=== PATIENT | female | born 1980 | race Caucasian/White ===

== ENCOUNTER 2022-01-09 20:08 | Emergency (ER) | payer OTHER ==
[~2022-01-09] VITALS: Ht 165.1 cm; Wt 59.0 kg
[2022-01-09] MEDS ORDERED: CLIN150 PO (22:22)
== END 2022-01-09 22:37 | disposition home or self-care (01) ==
LOC: ER 20:08
DX: K04.7 Periapical abscess without sinus (principal); S02.5XXA Fracture of tooth (traumatic), initial encounter for closed fracture; F17.200 Nicotine dependence, unspecified, uncomplicated; Z88.0 Allergy status to penicillin; Z88.8 Allergy status to other drugs, medicaments and biological substances; X58.XXXA Exposure to other specified factors, initial encounter
CPT/HCPCS: 64400; 99282-25; A9270

== ENCOUNTER 2023-08-10 12:36 | Emergency (ER) | payer OTHER ==
[~2023-08-10] VITALS: Ht 165.1 cm; Wt 59.0 kg
[~2023-08-10 12:36] MED LIST: CLIN150 PO
[2023-08-10 12:44] VITALS: BP 156/84
[2023-08-10] MEDS ORDERED: Diphth,Pertuss(Acell),Tet Vac 0.5 ML VIAL IM ONE (12:45)
[2023-08-10] MEDS ORDERED: OxyCODONE 5 mg/Acetamin 325 mg TABLET PO ONE ×2 (12:50→17:15)
[2023-08-10] MEDS ORDERED: Lidocaine/Tetracaine/Epinephr 4 ML SOLN TOP ONE (12:50)
[2023-08-10] MEDS ORDERED: Ketorolac Tromethamine 15mg Vial IV ONE (13:45)
[2023-08-10] MEDS ORDERED: Ondansetron HCl 2 MG / ML 2ML Vial IV ONE ×2 (13:45→17:15)
[2023-08-10] MEDS ORDERED: FentaNYL Citrate 50 MCG/ML 2 ML Injection IV ONE (13:45)
[2023-08-10] MEDS ORDERED: HYDROmorphone HCl/Pf 1MG SYR IV ONE (14:35)
[2023-08-10] MEDS ORDERED: MS Contin15 MG PO (17:07)
[2023-08-10] MEDS ORDERED: BACTRIM DS TAB1 EAC1 PO (17:07)
[2023-08-10] MEDS ORDERED: NARCAN4 M1 (17:07)
[2023-08-10] MEDS ORDERED: ONDA4ODT MM (17:09)
[2023-08-10] MEDS ORDERED: Trimethoprim/Sulfamethoxazole DS Tab PO ONE (17:10)
== END 2023-08-10 17:42 | disposition home or self-care (01) ==
LOC: ER 12:36
DX: S51.811A Laceration without foreign body of right forearm, initial encounter (principal); S61.511A Laceration without foreign body of right wrist, initial encounter; S61.011A Laceration without foreign body of right thumb without damage to nail, initial encounter; W10.9XXA Fall (on) (from) unspecified stairs and steps, initial encounter; F17.200 Nicotine dependence, unspecified, uncomplicated; Z88.0 Allergy status to penicillin; Z88.8 Allergy status to other drugs, medicaments and biological substances; Z79.2 Long term (current) use of antibiotics
CPT/HCPCS: 73090; 90715; A9270; J1170; J1885; J2405; J3010

== ENCOUNTER 2023-09-10 01:16 | Inpatient (IN) | payer OTHER ==
[2023-09-10] VITALS (21 sets, daily range): BP systolic 105–141; BP diastolic 60–96
[~2023-09-10] VITALS: Ht 162.6 cm; Wt 65.5 kg
[~2023-09-10 01:16] MED LIST changes: +BACTRIM DS TAB1 EAC1 PO; +MS Contin15 MG PO; +NARCAN4 M1; +ONDA4ODT MM
[2023-09-10] MEDS ORDERED: BUPR75 PO (03:00)
[2023-09-10 03:01] LABS: BASOPHILS ABSOLUTE AUTO 0.06 K/mm3 (0.00-0.23); BASOPHILS PERCENT AUTO 1 % (0-2); EOSINOPHILS ABSOLUTE AUTO 0.15 K/mm3 (0.00-0.68); EOSINOPHILS PERCENT AUTO 1 % (0-6); Hematocrit 37.2 % (33.0-51.0); Hemoglobin 12.3 g/dL (11.5-16.0); IMMATURE GRAN ABSOLUTE AUTO 0.02 K/mm3 (0.00-0.10); IMMATURE GRAN PERCENT AUTO 0 % (0-1); LYMPHOCYTES ABSOLUTE AUTO 2.02 K/mm3 (0.84-5.20); LYMPHOCYTES PERCENT AUTO 18 % (21-46); MONOCYTES PERCENT AUTO 8 % (4-13); Mean Corpuscular HGB 29.9 pg (26.0-34.0); Mean Corpuscular HGB Conc 33.1 g/dL (31.5-36.5); Mean Corpuscular Volume 91 fL (80-100); Mean Platelet Volume 8.6 fL (9.1-12.4); NEUTROPHILS ABSOLUTE AUTO 8.18 K/mm3 (1.96-9.15); NEUTROPHILS PERCENT AUTO 72 % (41-73); Platelet Count 424 K/mm3 (150-400); RDW Coefficient Variation 14.7 % (11.7-14.2); RDW Standard Deviation 49.2 fL (35.1-46.3); Red Blood Cell Count 4.11 M/mm3 (3.80-5.20); White Blood Cell Count 11.33 K/mm3 (4.00-11.30)
[2023-09-10] MEDS ORDERED: Ventolin5 MG/1 ML INH (03:01)
[2023-09-10 03:07] LABS: Source, Urine Clean Catch
[2023-09-10 03:09] LABS: Bilirubin, Urine Neg (Neg); Blood, Urine Neg (Neg); Glucose Qualitative, Urine Neg (Neg); Ketones, Urine Neg (Neg); Leukocyte Esterase, Urine Neg (Neg); Nitrite, Urine Neg (Neg); Protein, Urine Neg (Neg); Urobilinogen, Urine NORM (Normal)
[2023-09-10 03:11] LABS: Appearance, Urine Clear (Clear); Color, Urine Yellow (P-Yellow)
[2023-09-10 03:16] LABS: Albumin, Blood 3.8 g/dL (3.4-5.0); Albumin/Globulin Ratio 1.2 (0.8-1.8); Bilirubin, Total 0.2 mg/dL (0.1-1.0); Bun/Creatinine Ratio 18.6 (12.0-20.0); Calcium, Blood 9.1 mg/dL (8.5-10.1); Creatinine, Blood 0.65 mg/dL (0.40-1.00); Globulin, Blood 3.2 g/dL (2.2-4.0); Potassium, Blood 4.1 mmol/L (3.5-5.5)
[2023-09-10] MEDS ORDERED: Ketorolac Tromethamine 30mg Vial IV ONE (03:30)
[2023-09-10] MEDS ORDERED: NS 1,000 ML IV SCH (03:30)
[2023-09-10] MEDS ORDERED: Ondansetron HCl 2 MG / ML 2ML Vial IV ONE (04:15)
[2023-09-10] MEDS ORDERED: FentaNYL Citrate 50 MCG/ML 2 ML Injection IV ONE (04:15)
[2023-09-10] MEDS ORDERED: HYDROmorphone HCl/Pf 1MG SYR IV ONE (06:00)
[2023-09-10] MEDS ORDERED: OxyCODONE HCL 5 MG TAB PO ONE (06:55)
[2023-09-10] MEDS ORDERED: Ondansetron HCl 2 MG / ML 2ML Vial IV PRN ×2 (08:40→18:45)
[2023-09-10] MEDS ORDERED: Naloxone HCl 0.4MG / ML 1ML Vial IV PRN ×2 (08:40→18:40)
[2023-09-10] MEDS ORDERED: Metoclopramide HCl 5MG / ML 2ML Vial IV PRN ×2 (08:40→18:40)
[2023-09-10] MEDS ORDERED: Morphine Sulfate 4 MG/1 ML Injection IV PRN (08:40)
[2023-09-10] MEDS ORDERED: Lactated Ringer's 1,000 ML IV SCH ×3 (08:45→18:35)
[2023-09-10] MEDS ORDERED: ATOMOXETINE HCL40 M3 PO (09:29)
[2023-09-10] MEDS ORDERED: BUSPIRONE HCL10 M6 PO (09:31)
[2023-09-10] MEDS ORDERED: BREYNA 160-4.10.3 GM INH (09:32)
--- NOTE | 2023-09-10 10:15 | NUR ---
ARRIVAL PT ARRIVED TO UNIT FROM ER VIA WHEELCHAIR. PT ABLE TO STAND AND TRANSFER TO BED. AMBULATES TO RESTROOM HUNCHED OVER R/T PAIN. MEDICATION PER EMAR. EDUCATED PT ON NPO STATUS AND PLAN FOR SURGERY TODAY. PT UNDERSTANDS BUT IS ANXIOUS ABOUT SURGERY. PT DENIES OTHER DISCOMFORT OR PAIN BESIDES ABDOMEN. LARGE SCAR TO R FOREARM FROM LACERATION 1 MONTH AGO, HEALING BUT WITH SMALL SCABBED OVER AREA. MEDICATION FOR PAIN PER EMAR AND LR INFUSING PER EMAR. CALL LIGHT PROVIDED.
[2023-09-10] MEDS ORDERED: Acetaminophen 500 MG Tab PO SCH (12:00)
[2023-09-10] MEDS ORDERED: Ketorolac Tromethamine 30mg Vial IV SCH (12:00)
--- NOTE | 2023-09-10 12:42 | NUR ---
PT TO OR AT APROX 1240.
[2023-09-10] MEDS ORDERED: CeFAZolin Sodium 2,000 MG in NS 100 ML IV SCH (13:00)
--- NOTE | 2023-09-10 13:00 | NUR ---
History, Chart, Medications and Allergies reviewed before start of procedure. Patient up to Ambulate independently. Gait steady. Pre-Op teaching done. Pt verbalizes understanding. Patient confirms NPO status and agrees with scheduled surgery. Surgical site prepped with 2% Chlorhexidine cloth wipe. Lungs clear T/O to Auscultation. Spouse at bedside, both tearful but calm.
[2023-09-10] MEDS ORDERED: Morphine Sulfate 4 MG/1 ML Injection ONE (13:12)
[2023-09-10] MEDS ORDERED: Bupivacaine 0.5% HCl 5 MG/ML 30MLVIAL ONE ×2 (13:23→17:48)
[2023-09-10] MEDS ORDERED: propofoL 20 ML IV ONE (13:25)
[2023-09-10] MEDS ORDERED: FentaNYL Citrate 50 MCG/ML 2 ML Injection ONE ×2 (13:26→16:31)
[2023-09-10] MEDS ORDERED: Lidocaine HCl 2% 20 ML MDV ONE (13:27)
[2023-09-10] MEDS ORDERED: SuccINYLCHOLINE Chloride 100 MG/5 ML 5MLSYR ONE (13:27)
[2023-09-10] MEDS ORDERED: Rocuronium Bromide 10 MG/ML 5ML Injection IV ONE ×2 (13:27→14:48)
[2023-09-10] MEDS ORDERED: Midazolam HCl 1MG / ML 2ML Vial IV ONE (13:40)
[2023-09-10] MEDS ORDERED: Phenylephrine HCl 100 MCG/ML-NS 10MLSYR (1MG/10ML) ONE (13:52)
[2023-09-10] MEDS ORDERED: Ondansetron HCl 2 MG / ML 2ML Vial ONE ×2 (14:11→18:42)
[2023-09-10] MEDS ORDERED: Dexamethasone Sod Phos 10 MG/ML 1ML VIAL ONE (14:11)
[2023-09-10] MEDS ORDERED: Tranexamic Acid 100 ML IV ONE (15:30)
[2023-09-10] MEDS ORDERED: Tranexamic Acid 100 ML IV SCH (16:55)
[2023-09-10] MEDS ORDERED: Sugammadex Sodium 200 MG/2ML SDV (100 MG/ML) ONE (17:05)
--- NOTE | 2023-09-10 18:01 | NUR ---
SHIFT SUMMARY PT REMAINS IN OR SINCE 1240. PRIOR TO LEAVING FOR OR PAIN WAS CONTROLLED PER EMAR AND PATIENT ABLE TO AMBULATE WELL TO RESTROOM. VERY ANXIOUS FOR PROCEDURE.
[2023-09-10] MEDS ORDERED: HYDROmorphone HCl/Pf 1MG SYR ONE ×2 (18:15→18:40)
[2023-09-10] MEDS ORDERED: Metoclopramide HCl 5MG / ML 2ML Vial ONE (18:16)
[2023-09-10] MEDS ORDERED: HYDROmorphone HCl/Pf 1MG SYR IV PRN (18:40)
[2023-09-10] MEDS ORDERED: Simethicone 80 MG Chew PO PRN (18:45)
[2023-09-10] MEDS ORDERED: OxyCODONE HCL 5 MG TAB PO PRN ×2 (18:45)
[2023-09-10] MEDS ORDERED: DiphenhydrAMINE HCL 25 MG Cap PO PRN (18:45)
[2023-09-11] MEDS ORDERED: Ibuprofen 400 MG Tab PO SCH
[2023-09-11] MEDS ORDERED: Acetaminophen 500 MG Tab PO SCH
[2023-09-11] MEDS ORDERED: Ketorolac Tromethamine 30mg Vial IV SCH
[2023-09-11 04:01] VITALS: BP 112/61
[2023-09-11 05:22] LABS: BASOPHILS ABSOLUTE AUTO 0.02 K/mm3 (0.00-0.23); BASOPHILS PERCENT AUTO 0 % (0-2); EOSINOPHILS ABSOLUTE AUTO 0.04 K/mm3 (0.00-0.68); EOSINOPHILS PERCENT AUTO 1 % (0-6); Hematocrit 31.5 % (33.0-51.0); Hemoglobin 10.5 g/dL (11.5-16.0); IMMATURE GRAN ABSOLUTE AUTO 0.03 K/mm3 (0.00-0.10); IMMATURE GRAN PERCENT AUTO 0 % (0-1); LYMPHOCYTES ABSOLUTE AUTO 1.18 K/mm3 (0.84-5.20); LYMPHOCYTES PERCENT AUTO 14 % (21-46); MONOCYTES PERCENT AUTO 7 % (4-13); Mean Corpuscular HGB Conc 33.3 g/dL (31.5-36.5); Mean Corpuscular Volume 93 fL (80-100); Mean Platelet Volume 9.2 fL (9.1-12.4); NEUTROPHILS ABSOLUTE AUTO 6.45 K/mm3 (1.96-9.15); NEUTROPHILS PERCENT AUTO 78 % (41-73); Platelet Count 354 K/mm3 (150-400); RDW Coefficient Variation 14.8 % (11.7-14.2); RDW Standard Deviation 50.5 fL (35.1-46.3); Red Blood Cell Count 3.39 M/mm3 (3.80-5.20); White Blood Cell Count 8.32 K/mm3 (4.00-11.30)
--- NOTE | 2023-09-11 05:50 | NUR ---
SHIFT SUMMARY S/P ROBOTIC HYSTER CONVERTED TO OPEN. PT SLEPT INTERMITTENTLY T/O NOC. LAP SITES + LOWER TRANSVERSE INCISION REMAIN UNCHANGED WITH ABD BINDER IN PLACE. 2 SHARON + TYLENOL + TORADOL FOR PAIN MANAGEMENT AND KPAD TO ABD FOR COMFORT. IVF INFUSING PER ORDERS. BEAULIEU CATH DC'D THIS AM PER ORDERS. AWAITING FIRST SPONTANEOUS VOID. POST OP VS STABLE. USES CALL LIGHT APPROPRIATELY. SIG OTHER AT BEDSIDE FOR SUPPORT.
[2023-09-11 07:13] VITALS: BP 118/62
[2023-09-11] MEDS ORDERED: Polyethylene Glycol 3350 17 gm PO SCH (09:00)
[2023-09-11] MEDS ORDERED: Enoxaparin 40 MG/0.4 ML SYR SC SCH (09:00)
[2023-09-11 14:27] VITALS: BP 121/70
--- NOTE | 2023-09-11 17:20 | NUR ---
SHIFT SUMMARY POD 1 LAP TO OPEN HYSTERECTOMY. TRANSVERSE DRESSING CHANGED THIS AFTERNOON BY DR. WEBB. REMAINS WITH SMALL AMOUNT OF SEROSANGUINOUS DRAINAGE ON BANDAGE. PT CONTINUES TO REPORT PAIN WELL CONTROLLED PER EMAR. TOLERATING DIET WELL, NO NAUSEA. AMBULATING FREQUENTLY IN THE HALLS. PLAN IS FOR PATIENT TO DISCHARGE TOMORROW IF SHE CONTINUES TO DO WELL.
[2023-09-11 19:55] VITALS: BP 130/75
[2023-09-12] MEDS ORDERED: Promethazine HCl 25 MG Tab PO PRN (03:00)
[2023-09-12] MEDS ORDERED: Promethazine HCl 25 MG Supp PR PRN (03:15)
[2023-09-12] MEDS ORDERED: Ondansetron 4 MG SoluTab SL PRN (05:35)
--- NOTE | 2023-09-12 06:10 | NUR ---
SHIFT SUMMARY PT WAS DOING WELL AT START OF SHIFT AND THEN BECAME NAUSEATED AND HAD A FEW EPISODES OF EMESIS T/O NOC. ANTIEMETICS GIVEN PER ORDERS. PT STILL FEELING NAUSEATED. INCISIONS REMAIN UNCHANGED WITH ABD BINDER IN PLACE. PT VOIDING SPONTANEOUSLY AND INDEP IN ROOM AND WITH AMBULATION. VSS. USES CALL LIGHT APPROPRIATELY.
[2023-09-12] MEDS ORDERED: Prochlorperazine Edisylate 10 mg Vial IV PRN (08:00)
[2023-09-12] MEDS ORDERED: D5W-LR 1,000 ML IV SCH (08:00)
[2023-09-12 08:02] VITALS: BP 146/84
[2023-09-12] MEDS ORDERED: Lactated Ringer's 1,000 ML IV SCH (08:05)
[2023-09-12] MEDS ORDERED: Lactated Ringer's 500 ML IV ONE (08:05)
[2023-09-12] MEDS ORDERED: Ketorolac Tromethamine 30mg Vial IV PRN (08:05)
[2023-09-12 14:28] VITALS: BP 117/77
--- NOTE | 2023-09-12 15:34 | NUR ---
DISCHARGE FEELS MUCH BETTER. TOLERATING SNACKS & FLUIDS & WISHES TO GO HOME. PAIN WELL MANAGED & AMBULATING EASILY. DECLINES WC & AMBULATES OUT w/ .
--- NOTE | 2023-09-13 15:02 | NUR ---
09/13/23 1502 Radha Wise VERIFICATIONS: EDIT CHART.
== END 2023-09-12 15:36 | disposition home or self-care (01) | DRG 742 ==
LOC: ER 01:16 → SURS 08:37
PROVIDERS: Student in an Organized Health Care Education/Training Program; ADMIT Obstetrics & Gynecology
PROC: 0WJG4ZZ Inspection of Peritoneal Cavity, Percutaneous Endoscopic Approach (ICD-10-PCS; 2023-09-10)
PROC: 0U510ZZ Destruction of Left Ovary, Open Approach (ICD-10-PCS; 2023-09-10)
PROC: 8E0W4CZ Robotic Assisted Procedure of Trunk Region, Percutaneous Endoscopic Approach (ICD-10-PCS; 2023-09-10)
PROC: 0UT90ZZ Resection of Uterus, Open Approach (ICD-10-PCS; principal; 2023-09-10 13:30)
PROC: 0UB70ZZ Excision of Bilateral Fallopian Tubes, Open Approach (ICD-10-PCS; 2023-09-10 13:30)
DX: D25.9 Leiomyoma of uterus, unspecified (principal); K56.7 Ileus, unspecified; K91.89 Other postprocedural complications and disorders of digestive system; N80.00 Endometriosis of the uterus, unspecified; N88.2 Stricture and stenosis of cervix uteri; N80.102 Endometriosis of left ovary, unspecified depth; J45.909 Unspecified asthma, uncomplicated; F41.9 Anxiety disorder, unspecified; K21.9 Gastro-esophageal reflux disease without esophagitis; F17.200 Nicotine dependence, unspecified, uncomplicated; F32.A Depression, unspecified; Z53.31 Laparoscopic surgical procedure converted to open procedure; Z88.0 Allergy status to penicillin; Z88.8 Allergy status to other drugs, medicaments and biological substances
CPT/HCPCS: 36415; 74177; 76856; 80053; 81003; 83690; 84702; 84703; 85025; 86850; 86900; 86901; 88307; 94762; 96361; 96374-59; 96375; 96376; 99284-25; 99285-25; A9270; G0378; J0330; J0690; J0780; J1100; J1170; J1650; J1885; J2250; J2270; J2371; J2405; J2704; J2765; J3010; J7030; J7120; Q9967

== ENCOUNTER 2023-09-14 13:35 | Emergency (ER) | payer OTHER ==
[~2023-09-14] VITALS: Ht 165.1 cm; Wt 56.7 kg
[~2023-09-14 13:35] MED LIST changes: +ATOMOXETINE HCL40 M3 PO; +BREYNA 160-4.10.3 GM INH; +BUPR75 PO; +BUSPIRONE HCL10 M6 PO; +Ventolin5 MG/1 ML INH
[2023-09-14 14:05] VITALS: BP 135/74
[2023-09-14 14:33] LABS: BASOPHILS ABSOLUTE AUTO 0.02 K/mm3 (0.00-0.23); BASOPHILS PERCENT AUTO 0 % (0-2); EOSINOPHILS ABSOLUTE AUTO 0.45 K/mm3 (0.00-0.68); EOSINOPHILS PERCENT AUTO 7 % (0-6); Hematocrit 34.5 % (33.0-51.0); Hemoglobin 11.3 g/dL (11.5-16.0); IMMATURE GRAN ABSOLUTE AUTO 0.03 K/mm3 (0.00-0.10); IMMATURE GRAN PERCENT AUTO 1 % (0-1); LYMPHOCYTES ABSOLUTE AUTO 1.18 K/mm3 (0.84-5.20); LYMPHOCYTES PERCENT AUTO 19 % (21-46); MONOCYTES ABSOLUTE AUTO 0.43 K/mm3 (0.16-1.47); MONOCYTES PERCENT AUTO 7 % (4-13); Mean Corpuscular HGB 30.6 pg (26.0-34.0); Mean Corpuscular HGB Conc 32.8 g/dL (31.5-36.5); Mean Corpuscular Volume 94 fL (80-100); Mean Platelet Volume 8.4 fL (9.1-12.4); NEUTROPHILS ABSOLUTE AUTO 4.17 K/mm3 (1.96-9.15); NEUTROPHILS PERCENT AUTO 66 % (41-73); Platelet Count 384 K/mm3 (150-400); RDW Coefficient Variation 14.6 % (11.7-14.2); RDW Standard Deviation 49.9 fL (35.1-46.3); Red Blood Cell Count 3.69 M/mm3 (3.80-5.20); White Blood Cell Count 6.28 K/mm3 (4.00-11.30)
[2023-09-14 15:02] LABS: Albumin, Blood 3.2 g/dL (3.4-5.0); Bilirubin, Total 0.4 mg/dL (0.1-1.0); Bun/Creatinine Ratio 11.8 (12.0-20.0); Calcium, Blood 8.7 mg/dL (8.5-10.1); Creatinine, Blood 0.68 mg/dL (0.40-1.00); Globulin, Blood 3.3 g/dL (2.2-4.0); Potassium, Blood 3.6 mmol/L (3.5-5.5); Total Protein, Blood 6.5 g/dL (6.4-8.2)
[2023-09-14] MEDS ORDERED: Ketorolac Tromethamine 30mg Vial IV ONE (15:50)
[2023-09-14] MEDS ORDERED: Metoclopramide HCl 5MG / ML 2ML Vial IV ONE (15:50)
[2023-09-14] MEDS ORDERED: ACETAMINOPHEN500 M2 PO (16:04)
[2023-09-14] MEDS ORDERED: IBU800 M1 PO (16:04)
[2023-09-14] MEDS ORDERED: ONDANSETRON ODT 4 MG (16:04)
[2023-09-14] MEDS ORDERED: OXYC5 PO (16:06)
[2023-09-14] MEDS ORDERED: Reglan10 MG PO (16:48)
== END 2023-09-14 17:05 | disposition home or self-care (01) ==
LOC: ER 13:35
PROVIDERS: Nurse Practitioner
DX: K91.89 Other postprocedural complications and disorders of digestive system (principal); K56.7 Ileus, unspecified; Z88.0 Allergy status to penicillin; Z88.8 Allergy status to other drugs, medicaments and biological substances; F17.200 Nicotine dependence, unspecified, uncomplicated
CPT/HCPCS: 74177; 80053; 83690; 85025; 96374-59; 96375; 99284-25; J1885; J2765; Q9967

== ENCOUNTER 2023-09-17 15:52 | Inpatient (IN) | payer OTHER ==
[~2023-09-17] VITALS: Ht 165.1 cm; Wt 59.0 kg
[~2023-09-17 15:52] MED LIST changes: +ACETAMINOPHEN500 M2 PO; +IBU800 M1 PO; +ONDANSETRON ODT 4 MG; +OXYC5 PO; +Reglan10 MG PO
[2023-09-17 16:31] LABS: BASOPHILS ABSOLUTE AUTO 0.03 K/mm3 (0.00-0.23); BASOPHILS PERCENT AUTO 0 % (0-2); EOSINOPHILS ABSOLUTE AUTO 0.32 K/mm3 (0.00-0.68); EOSINOPHILS PERCENT AUTO 4 % (0-6); Hematocrit 39.5 % (33.0-51.0); Hemoglobin 13.1 g/dL (11.5-16.0); IMMATURE GRAN ABSOLUTE AUTO 0.02 K/mm3 (0.00-0.10); IMMATURE GRAN PERCENT AUTO 0 % (0-1); LYMPHOCYTES ABSOLUTE AUTO 1.41 K/mm3 (0.84-5.20); LYMPHOCYTES PERCENT AUTO 15 % (21-46); MONOCYTES ABSOLUTE AUTO 0.63 K/mm3 (0.16-1.47); MONOCYTES PERCENT AUTO 7 % (4-13); Mean Corpuscular HGB 30.3 pg (26.0-34.0); Mean Corpuscular HGB Conc 33.2 g/dL (31.5-36.5); Mean Corpuscular Volume 91 fL (80-100); Mean Platelet Volume 8.2 fL (9.1-12.4); NEUTROPHILS ABSOLUTE AUTO 6.79 K/mm3 (1.96-9.15); NEUTROPHILS PERCENT AUTO 74 % (41-73); Platelet Count 476 K/mm3 (150-400); RDW Coefficient Variation 14.4 % (11.7-14.2); RDW Standard Deviation 49.1 fL (35.1-46.3); Red Blood Cell Count 4.32 M/mm3 (3.80-5.20)
[2023-09-17 17:03] LABS: Albumin, Blood 3.6 g/dL (3.4-5.0); Bilirubin, Total 0.2 mg/dL (0.1-1.0); Bun/Creatinine Ratio 8.1 (12.0-20.0); Calcium, Blood 9.1 mg/dL (8.5-10.1); Creatinine, Blood 0.62 mg/dL (0.40-1.00); Globulin, Blood 3.7 g/dL (2.2-4.0); Potassium, Blood 3.7 mmol/L (3.5-5.5); Total Protein, Blood 7.3 g/dL (6.4-8.2)
[2023-09-17] MEDS ORDERED: NS 1,000 ML IV SCH (18:20)
[2023-09-17] MEDS ORDERED: Ketorolac Tromethamine 30mg Vial IV ONE (18:20)
[2023-09-17] MEDS ORDERED: Metoclopramide HCl 5MG / ML 2ML Vial IV ONE (18:45)
[2023-09-17] MEDS ORDERED: Docusate Sodium 100 MG Cap PO SCH (21:00)
[2023-09-17] MEDS ORDERED: Prochlorperazine Edisylate 10 mg Vial IV PRN (21:00)
[2023-09-17] MEDS ORDERED: Metoclopramide HCl 5MG / ML 2ML Vial IV PRN (21:05)
[2023-09-17] MEDS ORDERED: OxyCODONE HCL 5 MG TAB PO PRN ×2 (21:05)
[2023-09-17] MEDS ORDERED: Naloxone HCl 0.4MG / ML 1ML Vial IV PRN (21:05)
[2023-09-17] MEDS ORDERED: Lactated Ringer's 1,000 ML IV SCH (21:10)
[2023-09-17 22:34] VITALS: BP 139/89
[2023-09-18] MEDS ORDERED: Ketorolac Tromethamine 30mg Vial IV SCH
[2023-09-18] MEDS ORDERED: Acetaminophen 500 MG Tab PO SCH
[2023-09-18 02:40] VITALS: BP 139/89
[2023-09-18 04:06] LABS: BASOPHILS ABSOLUTE AUTO 0.02 K/mm3 (0.00-0.23); BASOPHILS PERCENT AUTO 0 % (0-2); EOSINOPHILS ABSOLUTE AUTO 0.36 K/mm3 (0.00-0.68); EOSINOPHILS PERCENT AUTO 4 % (0-6); Hemoglobin 11.3 g/dL (11.5-16.0); IMMATURE GRAN ABSOLUTE AUTO 0.03 K/mm3 (0.00-0.10); IMMATURE GRAN PERCENT AUTO 0 % (0-1); LYMPHOCYTES ABSOLUTE AUTO 1.56 K/mm3 (0.84-5.20); LYMPHOCYTES PERCENT AUTO 17 % (21-46); MONOCYTES ABSOLUTE AUTO 0.97 K/mm3 (0.16-1.47); MONOCYTES PERCENT AUTO 11 % (4-13); Mean Corpuscular HGB 30.2 pg (26.0-34.0); Mean Corpuscular HGB Conc 33.2 g/dL (31.5-36.5); Mean Corpuscular Volume 91 fL (80-100); Mean Platelet Volume 8.4 fL (9.1-12.4); NEUTROPHILS ABSOLUTE AUTO 6.24 K/mm3 (1.96-9.15); NEUTROPHILS PERCENT AUTO 68 % (41-73); Platelet Count 407 K/mm3 (150-400); RDW Coefficient Variation 14.6 % (11.7-14.2); RDW Standard Deviation 48.8 fL (35.1-46.3); Red Blood Cell Count 3.74 M/mm3 (3.80-5.20); White Blood Cell Count 9.18 K/mm3 (4.00-11.30)
[2023-09-18 04:21] LABS: Albumin, Blood 2.9 g/dL (3.4-5.0); Bilirubin, Total 0.4 mg/dL (0.1-1.0); Bun/Creatinine Ratio 13.7 (12.0-20.0); Calcium, Blood 8.6 mg/dL (8.5-10.1); Creatinine, Blood 0.58 mg/dL (0.40-1.00); Globulin, Blood 2.9 g/dL (2.2-4.0); Magnesium, Blood 2.1 mg/dL (1.6-2.4); Phosphorus, Blood 3.3 mg/dL (2.5-4.9); Potassium, Blood 3.5 mmol/L (3.5-5.5); Total Protein, Blood 5.8 g/dL (6.4-8.2)
[2023-09-18 07:19] VITALS: BP 145/88
--- NOTE | 2023-09-18 07:36 | NUR ---
SHIFT SUMMARY PT ADMITTED FOR ILEUS POST HYSTER PT IS A&O X4, INDEPENDENT IN ROOM, NPO W CIPS, VOIDING WNL, PASSING SMALL AMOUNTS OF FLATUS, MILD NAUSEA, NO EMESIS SINCE COMING TO THE FLOOR, PAIN MANAGED PER EMAR PRN, LR INFUSING @125 ML/HR, RESTING IN BED AT THIS TIME, BEDSIDE REPORT GIVEN TO VINICIO SCHMIDT, CALL LIGHT IN REACH
[2023-09-18] MEDS ORDERED: Enoxaparin 40 MG/0.4 ML SYR SC SCH (09:00)
[2023-09-18] MEDS ORDERED: buPROPion HCL 150 MG TAB.SR.12H PO SCH (09:00)
[2023-09-18] MEDS ORDERED: NS 500 ML IV ONE ×2 (13:40→18:20)
[2023-09-18 13:57] VITALS: BP 135/83
[2023-09-18] MEDS ORDERED: Calcium Carbonate 500 MG Tab Chew PO PRN (17:20)
--- NOTE | 2023-09-18 17:54 | NUR ---
SUMMARY NO ACUTE CHANGES T/O SHIFT. PT REPORTED SMALL LIQUID BM THIS AFTERNOON. PT HAVING LOW UO. NOTIFIED DR WEBB, BOLUS ORDERED AND GIVEN. PT REPORTED REFLUX, ORDERED OBTAINED FOR TUMS AND ADMINISTERED. INDEPENDENT IN JAY. TOLERATING SMALL AMOUNTS OF CLEAR LIQUIDS.
[2023-09-18 18:46] LABS: BASOPHILS ABSOLUTE AUTO 0.05 K/mm3 (0.00-0.23); BASOPHILS PERCENT AUTO 0 % (0-2); EOSINOPHILS ABSOLUTE AUTO 0.36 K/mm3 (0.00-0.68); EOSINOPHILS PERCENT AUTO 3 % (0-6); Hematocrit 33.5 % (33.0-51.0); Hemoglobin 11.3 g/dL (11.5-16.0); IMMATURE GRAN ABSOLUTE AUTO 0.04 K/mm3 (0.00-0.10); IMMATURE GRAN PERCENT AUTO 0 % (0-1); LYMPHOCYTES ABSOLUTE AUTO 1.55 K/mm3 (0.84-5.20); LYMPHOCYTES PERCENT AUTO 13 % (21-46); MONOCYTES ABSOLUTE AUTO 0.92 K/mm3 (0.16-1.47); MONOCYTES PERCENT AUTO 8 % (4-13); Mean Corpuscular HGB 30.8 pg (26.0-34.0); Mean Corpuscular HGB Conc 33.7 g/dL (31.5-36.5); Mean Corpuscular Volume 91 fL (80-100); Mean Platelet Volume 8.2 fL (9.1-12.4); NEUTROPHILS ABSOLUTE AUTO 8.97 K/mm3 (1.96-9.15); NEUTROPHILS PERCENT AUTO 76 % (41-73); Platelet Count 400 K/mm3 (150-400); RDW Coefficient Variation 14.6 % (11.7-14.2); Red Blood Cell Count 3.67 M/mm3 (3.80-5.20); White Blood Cell Count 11.89 K/mm3 (4.00-11.30)
[2023-09-18 19:17] VITALS: BP 140/88
[2023-09-18 19:19] LABS: Bun/Creatinine Ratio 13.8 (12.0-20.0); Calcium, Blood 8.2 mg/dL (8.5-10.1); Creatinine, Blood 0.65 mg/dL (0.40-1.00); Potassium, Blood 3.8 mmol/L (3.5-5.5)
[2023-09-18] MEDS ORDERED: Magnesium Hydroxide Conc 10 ML UDC PO SCH (21:00)
[2023-09-18] MEDS ORDERED: Promethazine HCl 25 MG Tab PO PRN (21:30)
[2023-09-18] MEDS ORDERED: Promethazine HCl 25 MG Supp PR PRN (21:30)
--- NOTE | 2023-09-18 22:36 | NUR ---
2130- PT HAD EPISODE OF SIGNIFICANT VOMITING. PT VOMITED 1500 ML BRIGHT GREEN BILE/ FLUID. PT DID REPORT FEELING BETTER. PROVIDER NOTIFIED AND NEW ORDERERS RECIEVED.
[2023-09-19 03:25] VITALS: BP 133/86
--- NOTE | 2023-09-19 05:16 | NUR ---
SUMMARY- PT HAD TWO EPISODES OF VOMITING >1000 ML OF EMESIS. PT DID HAVE SOME RELIEF FROM NAUSEA MEDS. PT OFFERED NGT BUT STATED SHE WANTED TO DISCUSS WITH PROVIDER THIS AM BEFORE MAKING A DECISION. PT IS NPO WITH SIPS AND CHIPS ONLY. PT RESTING CURRENTLY. CALL LIGHT IN REACH.
[2023-09-19 05:25] LABS: BASOPHILS ABSOLUTE AUTO 0.05 K/mm3 (0.00-0.23); BASOPHILS PERCENT AUTO 1 % (0-2); EOSINOPHILS ABSOLUTE AUTO 0.34 K/mm3 (0.00-0.68); EOSINOPHILS PERCENT AUTO 4 % (0-6); Hematocrit 31.7 % (33.0-51.0); Hemoglobin 10.5 g/dL (11.5-16.0); IMMATURE GRAN ABSOLUTE AUTO 0.03 K/mm3 (0.00-0.10); IMMATURE GRAN PERCENT AUTO 0 % (0-1); LYMPHOCYTES ABSOLUTE AUTO 1.33 K/mm3 (0.84-5.20); LYMPHOCYTES PERCENT AUTO 14 % (21-46); MONOCYTES PERCENT AUTO 6 % (4-13); Mean Corpuscular HGB 30.1 pg (26.0-34.0); Mean Corpuscular HGB Conc 33.1 g/dL (31.5-36.5); Mean Corpuscular Volume 91 fL (80-100); Mean Platelet Volume 8.4 fL (9.1-12.4); NEUTROPHILS ABSOLUTE AUTO 7.38 K/mm3 (1.96-9.15); NEUTROPHILS PERCENT AUTO 76 % (41-73); Platelet Count 395 K/mm3 (150-400); RDW Coefficient Variation 14.5 % (11.7-14.2); RDW Standard Deviation 48.3 fL (35.1-46.3); Red Blood Cell Count 3.49 M/mm3 (3.80-5.20); White Blood Cell Count 9.73 K/mm3 (4.00-11.30)
[2023-09-19 05:48] LABS: Bun/Creatinine Ratio 15.6 (12.0-20.0); Calcium, Blood 8.7 mg/dL (8.5-10.1); Creatinine, Blood 0.58 mg/dL (0.40-1.00); Magnesium, Blood 1.9 mg/dL (1.6-2.4); Phosphorus, Blood 3.1 mg/dL (2.5-4.9); Potassium, Blood 3.5 mmol/L (3.5-5.5)
[2023-09-19 07:21] VITALS: BP 134/81
[2023-09-19] MEDS ORDERED: Mag Sulfate 1 GM/D5% 100ML 100 ML IV STA (07:44)
[2023-09-19] MEDS ORDERED: NS KCl 20mEq 1,000 ML IV SCH (08:00)
[2023-09-19] MEDS ORDERED: Polyethylene Glycol 3350 17 gm PO SCH (09:00)
[2023-09-19] MEDS ORDERED: Benzocaine Oral Spray 0.5ML UD MT ONE (10:25)
--- NOTE | 2023-09-19 11:35 | NUR ---
ng tube placed per order, started drain green gastric fluid immediately. set to low intermittent suctions. Will continue to monitor.
[2023-09-19] MEDS ORDERED: DEXTROMETHORPHAN/BENZOCAINE 1 EACH LOZENGE MT PRN (14:50)
[2023-09-19 15:18] VITALS: BP 134/84
--- NOTE | 2023-09-19 18:30 | NUR ---
SHIFT SUMMARY PT ALERT, ORIENTED X4; ANXIOUS AT TIME, COOPERATIVE WITH CARE. PT UP IN ROOM IND. PT REPORTING INCREASED PRESSURE IN ABD THIS AM, MD AT BEDSIDE, NEW ORDERS FOR NG TUBE PLACEMENT; NG TUBE PLACED, IMMEDIATELY DRAINING GREEN DRAINAGE PRIOR TO SETTING UP TO SUCTIONS, LOW INTERMITTENT SUCTIONS PER MD; PT HAD 500 CC OUT. THIS EVENING PT REPORTING A LIQUID/SOFT BM THIS EVENING. PT REPORTING ABD PAIN, MEDICATED PER EMAR. PT DENIES CHEST PAIN/PRESSURE, SOB, DIZZINESS AND NUMB/TINGLING. VSS. PT REMAINS NPO OTHER THAN ICE CHIPS. WILL CONTINUE TO MONITOR.
[2023-09-19 19:38] VITALS: BP 154/82
[2023-09-20 03:52] VITALS: BP 119/66
[2023-09-20 05:56] LABS: Bun/Creatinine Ratio 11.4 (12.0-20.0); Calcium, Blood 7.9 mg/dL (8.5-10.1); Creatinine, Blood 0.53 mg/dL (0.40-1.00); Phosphorus, Blood 2.1 mg/dL (2.5-4.9); Potassium, Blood 3.9 mmol/L (3.5-5.5)
--- NOTE | 2023-09-20 06:38 | NUR ---
SHIFT SUMMARY NOC. PT A/O X4. S/P HYSTER, ABDOMINAL LAP SITES AND TRANSVERSE INCISION C/D/I. PT NPO AT THIS TIME FOR NG TUBE. NG PRODUCING OUTPUT. PT MEDICATED FOR NAUSEA X1 WITH REPORTED RELIEF. PT MEDICATED FOR PAIN WITH IV TORADOL. PT VOIDING AND INDEPENDENT IN ROOM. PT RESTED WITH EYES CLOSED AND CALL LIGHT IN REACH.
[2023-09-20 07:23] VITALS: BP 132/80
[2023-09-20] MEDS ORDERED: Potassium Phosphate Dibasic 10 MM in Dextrose 5% 250 ML IV STA (08:29)
[2023-09-20 14:47] VITALS: BP 153/95
--- NOTE | 2023-09-20 16:08 | NUR ---
SHIFT SUMMARY NGT CLAMPED ALL AFTERNOON AND PT TOLERATED, SO NGT DC'D AT THIS TIME. PT ABLE TO TOLERATE ICE CHIPS AND SIPS OF JUICE. PT DENIES N/V AND MINIMAL ABD PAIN, DECLINING NEED FOR PAIN MEDICATIONS. ABD SOFT. PT REPORTS FLATUS AND HAD X1 BM TODAY. INDEP IN ROOM. IVF PER ORDERS. INCISIONS TO ABD REMAIN CDI. VSS. PT USING CALL LIGHT APPROPRIATELY.
[2023-09-20] MEDS ORDERED: Thiamine HCl 100 MG Tab PO SCH (16:40)
[2023-09-20] MEDS ORDERED: Multivitamins-Minerals Liquid 15 ML Oral Syringe PO SCH (16:45)
[2023-09-20 19:25] VITALS: BP 146/89
[2023-09-21 05:15] VITALS: BP 117/85
[2023-09-21 05:30] LABS: Bun/Creatinine Ratio 6.3 (12.0-20.0); Calcium, Blood 8.5 mg/dL (8.5-10.1); Creatinine, Blood 0.63 mg/dL (0.40-1.00); Magnesium, Blood 1.6 mg/dL (1.6-2.4)
--- NOTE | 2023-09-21 06:11 | NUR ---
SHIFT SUMMARY NOC. PT A/O X4. S/P HYSTER, ABDOMINAL LAP SITES AND TRANSVERSE INCISION C/D/I. PT TOLERATING SIPS OF CLEARS AT THIS TIME. DECLINED TO TAKE ORAL PILLS THIS SHIFT. PT WALKING FREQUENTLY AND REPORTS IMPROVEMENT IN PAIN AND NAUSEA. VOIDING URINE. PT RESTED WITH CALL LIGHT IN REACH.
[2023-09-21 07:32] VITALS: BP 124/86
== END 2023-09-21 11:25 | disposition home or self-care (01) | DRG 394 ==
LOC: ER 15:52 → SURS 20:58
PROVIDERS: Obstetrics & Gynecology; Physician Assistant; ADMIT Obstetrics & Gynecology
DX: K91.89 Other postprocedural complications and disorders of digestive system (principal); K56.7 Ileus, unspecified; F32.A Depression, unspecified; F41.9 Anxiety disorder, unspecified; J45.909 Unspecified asthma, uncomplicated; Z90.710 Acquired absence of both cervix and uterus; F17.210 Nicotine dependence, cigarettes, uncomplicated; Z88.1 Allergy status to other antibiotic agents; Z88.8 Allergy status to other drugs, medicaments and biological substances; Z79.899 Other long term (current) drug therapy; Z90.79 Acquired absence of other genital organ(s); Z90.722 Acquired absence of ovaries, bilateral; Y83.8 Other surgical procedures as the cause of abnormal reaction of the patient, or of later complication, without mention of misadventure at the time of the procedure
CPT/HCPCS: 36415; 71045; 74019; 80048; 80053; 83735; 84100; 85025; 94760; 94762; 96374; 96375; 99284-25; A9270; J0780; J1650; J1885; J2765; J3475; J3480; J7030; J7040; J7060; J7120

== ENCOUNTER → 2024-01-29 | Outpatient (CLI) | payer OTHER | END | disposition home or self-care (01) | LOC: LAB SHORT 18:40 → LAB 18:40 | DX: J02.9 Acute pharyngitis, unspecified (principal) | CPT/HCPCS: 87081 ==